=== PATIENT | female | born 1990 | race Two or more races ===

== ENCOUNTER 2024-12-02 20:47 | Emergency (ER) | payer MEDICAID, SELFPAY ==
[2024-12-02 20:49] VITALS: BMI 45.1
[2024-12-02 21:33] VITALS: BP 132/87; PULSE 92; RESP 18; TEMP 36.7; O2SAT 96
--- NOTE | 2024-12-02 21:38 | EDNOTE_ITS ---
ED OB Contraction Preg RMI/HPI General Chief complaint: Vaginal Bleeding Stated complaint: VAG BLEEDING WITH BACK PAIN Time Seen by Provider: 12/02/24 21:38 Arrival date/time: 12/02/24 20:47 34-year-old female with a history of abnormal menses reports with complaints of persistent menses x 1 month. Patient has been evaluated by S[facility]IOR CONTR[facility]LLER and advised that everything was normal and that she should wait for the menses to stop. Patient states that she was tired of having the menses and she wanted to know if there was a pill that she could take to end her menses. She denies any dysuria urinary urgency frequency fever or chills nausea or vomiting or abdominal pain. Patient does state that she has some back pain which she typically has with her menses Limitations: no limitations Related Data Previous Rx's ?Medication ?Instructions ?Recorded Belladonna Alkaloids/Phenobarb * 1 tab PO AC PRN PRN I NDIGESTION 02/15/17 ( *) #20 tabs aluminum-mag hydroxide-simethicone 10 ml PO TID PRN in digestion #355 09/02/18 400 mg-400 mg-40 mg/5 mL oral susp mL (Maalox Maximum Strength) Allergies Allergy/AdvReac Type Severity Reaction Status Date / Time Penicillins Allergy Verified 12/02/24 20:54 Review of Systems Constitutional Constitutional: Denies chills, Denies fever(s) and Denies headache(s) ENT Ears, Nose, Mouth, and Throat: Denies headache(s) Cardiovascular Cardiovascular: Denies chest pain, Denies dyspnea and Denies syncope Respiratory Respiratory: Denies cough and Denies dyspnea Gastrointestinal Gastrointestinal: Denies nausea and Denies vomiting Genitourinary Genitourinary: Reports abnormal vaginal bleeding, Denies dysuria and Denies urinary urgency Musculoskeletal Musculoskeletal: Reports back pain and Denies myalgias Integumentary/Breasts Skin/Breast: Denies unusual bruising and Denies wounds Neurologic Neurologic: Denies headache(s) and Denies syncope Psychiatric Psychiatric: Denies anxiety and Denies depression Hematologic/Lymphatic Hematologic/Lymphatic: Denies easy bleeding and Denies easy bruising ED Exam General Limitations: Present no limitations General appearance: Present alert and in no apparent distress Chest Chest inspection: Present normal inspection and symmetric chest wall rise Respiratory Respiratory exam: Present normal lung sounds bilaterally Cardiovascular Cardiovascular exam: Present regular rate, normal rhythm and normal heart sounds Abdominal Exam Abdominal exam: Present soft and normal bowel sounds Extremities Exam Extremities exam: Present normal inspection and full ROM Back Exam Back exam: Present normal inspection and full ROM Neurological Exam Neurological exam: Present alert, oriented X3 and CN II-XII intact Psychiatric Psychiatric exam: Present normal affect and normal mood Skin Skin exam: Present warm, dry, intact and normal color Course Course Course Narrative: 34-year-old female with a history of abnormal menses reports with complaints of long-term bleeding with her menses. Patient is requesting medications to stop her menses but declined any testing as she has already been tested by [facility]ER. Patient was educated on the menstrual cycle menses abnormalities and different changes within the menses. She is advised that there is no medication that we can give her to stop her menses especially if her [facility]IOR CONTR[facility]ER deems it normal. She is stable nontoxic-appearing with stable vital signs she is advised to follow-up with SEN[facility] CONTR[facility]ER for further evaluation and treatment. Patient verbalized understanding Quality Measures none Vital Signs Vital signs: Vital Signs Temperature 98.1 F 12/02/24 21:33 Pulse Rate 92 12/02/24 21:33 Respiratory Rate 18 12/02/24 21:33 Blood Pressure 132/87 H 12/02/24 21:33 Pulse Oximetry (%) 96 12/02/24 21:33 Oxygen Delivery Method Room Air 12/02/24 21:33 Vaginal Bleeding Patient data External records reviewed:: None Clinical information provided by:: patient Social determinants that could affect healthcare access:: none Patient has the following chronic illnesses:: none How is presenting disease/condition affected by chronic disease/condition?: no chronic disease Evaluation data The following diagnostics were reviewed and interpreted by me:: other (specify) (none) Lab and/or radiology exams considered but not ordered:: none Interpretation Summary: n/a Medications / Prescriptions Medications or Prescriptions considered but not ordered:: none Medication administrations:: none Consultations Consultation(s) initiated? (list below): No Diagnosis Vaginal Bleeding Differential Diagnosis: dysfunctional uterine bleeding, vaginal bleeding and other (pegnancy) Most likely diagnosis given after review of the tests above:: abnormal menses Admission Indicated Admission indicated?: not indicated Admission Request Was there a request for admission?: No Disposition Plan Disposition Plan: Discharge Discharge Attestation Discharge Attestation: The patient and all family members were given an opportunity to ask questions and understood the discharge instructions. Discharge instructions specifically effects, indications for sooner follow up or return to the emergency department, and the expected course of current diagnosis. Patient condition: Stable Discharge Plan Plan Patient Disposition: HOME (Self Care) Prescriptions/Referrals Prescriptions/Med Rec: No Action Belladonna Alkaloids/Phenobarb * ( *) 16.2 MG tablet 1 tab PO AC PRN PRN (Reason: INDIGESTION) Qty: 20 0RF Maalox Maximum Strength 400-400-40 mg/5 mL suspension 10 ml PO TID PRN (Reason: indigestion) Qty: 355 0RF Rx Instructions: administer between meals Problem List Clinical Impression: Abnormal menses Patient/Caregiver Discharge Instructions Discharge Activity: activity as tolerated Education Materials: Normal Menstrual Cycle, ED Dysfunctional Uterine Bleeding Additional Instructions: Follow-up with your SENIOR CONTROLLER. Return to the ER if symptoms should worsen Print Language: Indonesian Stand Alone Forms: Hiral Award Info., Patient Portal Info Letter
== END 2024-12-02 22:24 | disposition home or self-care (01) ==
LOC: SERX 22:07
PROVIDERS: Emergency Provider Emergency Medicine
DX: N92.5 Other specified irregular menstruation (principal)
CPT/HCPCS: 99281